=== PATIENT | female | born 1980 | race Two or more races ===

== ENCOUNTER 2025-02-18 22:11 | Emergency (ER) | payer MEDICAID, OTHER ==
[~2025-02-18] VITALS: Ht 170.2 cm; Wt 104.5 kg
[2025-02-18 22:14] VITALS: TEMP 98.6
[2025-02-18] MEDS: hydrALAZINE HCL 20 MG/ML VL IV ONE (22:30)
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
[2025-02-18 22:47] LABS: Basophils # (auto) 0.1 10 ^3/uL (0-0.2); Basophils % (auto) 1.1 % (0.0-2.0); Eosinophils # (auto) 0.2 10 ^3/uL (0-0.8); Hematocrit 45.2 % (36.0-46.0); Hemoglobin 15.5 g/dL (12.2-16.2); Lymphocytes % (auto) 24.4 % (10.0-50.0); Mean Corpuscular Hemoglobin 30.8 pg (28.0-32.0); Mean Corpuscular Hgb Conc. 34.2 g/dL (32.0-36.0); Mean Corpuscular Volume 89.9 fL (80.0-100.0); Monocytes # (auto) 0.5 10 ^3/uL (0-1.3); Monocytes % (auto) 5.7 % (0.0-12.0); Neutrophils # (auto) 5.4 10 ^3/uL (1.6-8.6); Neutrophils % (auto) 66.8 % (37.0-80.0); Nucleated Red Blood Cells % 0.1 %; Platelet Count (auto) 338 10^3/uL (140-450); Red Blood Cells 5.03 10^6/uL (4.0-5.20); Red Cell Distribution Width 13.2 % (11.8-14.3); White Blood Cell 8.1 10^3/uL (4.4-10.8)
[2025-02-18 23:08] LABS: Alanine Aminotransferase 12 U/L (7-40); Albumin 4.5 g/dL (3.2-4.8); Alkaline Phosphatase 78 U/L (46-116); Anion Gap 10 (5-15); Aspartate Aminotransferase 11 U/L (13-40); BUN/Creatinine Ratio 6.7 (10.0-20.0); Blood Urea Nitrogen 7 mg/dL (9-23); Calcium 8.7 mg/dL (8.7-10.4); Carbon Dioxide 28 mmol/L (20-31); Chloride 107 mmol/L (98-107); Glucose 116 mg/dL (74-106); Magnesium 2.3 mg/dL (1.6-2.6); Sodium 145 mmol/L (136-145); Total Protein 7.1 g/dL (5.7-8.2)
[2025-02-18 23:09] LABS: Bilirubin, Total 0.3 mg/dL (0.2-1.0)
[2025-02-18 23:18] VITALS: PULSE 79; RESP 15; O2SAT 97
[2025-02-19] MEDS ORDERED: HYDR25TA88 PO (00:22)
[2025-02-19] MEDS ORDERED: POTA-228 PO (00:22)
[2025-02-19] MEDS: POTASSIUM CHL 20 Meq TABLET PO ONE (00:33)
[2025-02-19] MEDS: hydrALAZINE HCL 20 MG/ML VL IV ONE (00:35)
[2025-02-19 01:00] VITALS: BP 158/85; PULSE 91; RESP 25; O2SAT 95
--- NOTE | 2025-02-19 04:22 | ECG ---
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
== END 2025-02-19 01:20 | disposition home or self-care (01) ==
LOC: ER 22:11 → EDBD 22:11 → ER 02-19 01:20
DX: R55 Syncope and collapse (principal); I10 Essential (primary) hypertension; F17.210 Nicotine dependence, cigarettes, uncomplicated; F10.20 Alcohol dependence, uncomplicated; E66.9 Obesity, unspecified; Z68.36 Body mass index [BMI] 36.0-36.9, adult; Z79.899 Other long term (current) drug therapy; Y90.9 Presence of alcohol in blood, level not specified
CPT/HCPCS: 36415; 80053; 82947; 83735; 84484; 85025; 93005; 96374; 96376; 99284; J0360